=== PATIENT | female | born 1995 | race Caucasian/White ===

== ENCOUNTER 2018-08-06 06:11 | Emergency (ER) | payer BC ==
[~2018-08-06] VITALS: Ht 182.9 cm; Wt 86.2 kg
[2018-08-06 06:14] VITALS: BP 139/92
--- NOTE | 2018-08-06 06:14 | NUR ---
Patient transferred to bed 8 via wheelchair by tech. RN evaluating patient at bedside.
--- NOTE | 2018-08-06 06:15 | NUR ---
PATIENT PRESENTED ER WITH C/O PF PAIN TO THE LEFT KNEE X 1 DAY. PT STATED SHE WAS UNDER THE INFLUENCE, AND WAS STANDING, KNEE BUCKED AND FELL. PT STATED SHE FELT A POP AND SHE HAD PAIN IN HER KNEE AND FELL TO THE FLOOR; PATIENT STATES PAIN OF 6/10 AT THIS TIME; VSS; PATIENT POSITIONED FOR COMFORT; HOB ELEVATED; BEDRAILS UP X2; BED DOWN. ER MD MADE AWARE OF PT STATUS. PT MEDICAL HX IS SYNCOPAL EPISODE AND ORTHOSTATIC HTN ALLERGIES TO PEACHES, TEA, CINNAMON
--- NOTE | 2018-08-06 06:24 | NUR ---
ct scan special procedures technologist at bedside.
--- NOTE | 2018-08-06 06:58 | NUR ---
PT SITTING UP IN BED, VSS.
--- NOTE | 2018-08-06 07:07 | NUR ---
GAVE REPORT TO KEM NEUMANN DAY SHIFT. PT SUDHA.
[2018-08-06] MEDS ORDERED: KETOROLAC 30 MG/ML VIAL IM ONE (07:55)
[2018-08-06 08:15] VITALS: BP 139/92
--- NOTE | 2018-08-06 08:15 | NUR ---
Patient discharged with v/s stable. Written and verbal after care instructions given and explained. Patient alert, oriented and verbalized understanding of instructions. Ambulatory with steady gait. All questions addressed prior to discharge. ID band removed. Patient advised to follow up with PMD. Rx of norco, ibuprofen, zofran given. Patient educated on indication of medication including possible reaction and side effects. Opportunity to ask questions provided and answered.
== END 2018-08-06 08:15 | disposition home or self-care (01) ==
LOC: MED 06:11
DX: S86.812A Strain of other muscle(s) and tendon(s) at lower leg level, left leg, initial encounter (principal); I10 Essential (primary) hypertension; X50.1XXA Overexertion from prolonged static or awkward postures, initial encounter; Y93.41 Activity, dancing; Y92.89 Other specified places as the place of occurrence of the external cause; Y99.8 Other external cause status
CPT/HCPCS: 29505; 73562; 96372; 99283; J1885; Q0092